=== PATIENT | female | born 1960 | race Caucasian/White ===

== ENCOUNTER 2016-08-04 12:07 | Emergency (ER) | payer MEDICAID ==
[~2016-08-04] VITALS: Ht 157.5 cm; Wt 52.2 kg
[2016-08-04 12:14] VITALS: BP 150/90
== END 2016-08-04 13:54 | disposition home or self-care (01) ==
LOC: ER 12:07
DX: E03.9 Hypothyroidism, unspecified (principal); Z76.0 Encounter for issue of repeat prescription

== ENCOUNTER 2017-10-05 11:21 | Emergency (ER) | payer SELFPAY ==
[~2017-10-05] VITALS: Ht 157.5 cm; Wt 45.8 kg
[2017-10-05 11:40] VITALS: BP 148/88
== END 2017-10-05 12:21 | disposition home or self-care (01) ==
LOC: ER 11:21
DX: E03.9 Hypothyroidism, unspecified (principal); Z76.0 Encounter for issue of repeat prescription

== ENCOUNTER 2019-04-06 09:07 | Emergency (ER) | payer SELFPAY ==
[~2019-04-06] VITALS: Ht 160 cm; Wt 45.4 kg
[2019-04-06 09:31] VITALS: BP 132/74
== END 2019-04-06 10:40 | disposition home or self-care (01) ==
LOC: ER 09:10
DX: E03.9 Hypothyroidism, unspecified (principal); Z76.0 Encounter for issue of repeat prescription